=== PATIENT | male | born 1995 | race Caucasian/White ===

== ENCOUNTER 2016-08-07 01:08 | Emergency (ER) | payer OTHER ==
[~2016-08-07] VITALS: Ht 172.7 cm; Wt 85.6 kg
[~2016-08-07 01:08] MED LIST: ALPR-411 PO; CITA20TA9 PO
[2016-08-07 01:13] VITALS: BP 132/73; TEMP 37.4; Ht 172.7 cm; Wt 85.6 kg
[2016-08-07] MEDS ORDERED: LIDO/EPINEPHRINE/SOD BICARB 20 ML VIAL INFIL ONE (01:19)
[2016-08-07] MEDS ORDERED: XYLOCAINE 1%/SOD BICARB 20 ML VIAL INFIL ONE (01:19)
--- NOTE | 2016-08-07 03:08 | EMERGENCY ROOM VISIT NOTE ---
ED Visit Note First contact with patient: 01:18 CHIEF COMPLAINT: Left knee laceration HISTORY OF PRESENT ILLNESS: This 21-year-old patient presents to the emergency department left knee when he fell on it just prior to arrival . The bleeding has not stopped. Denies weakness or numbness of the extremity. patient has full range of motion of the extremity The patient rates the pain as mild and 3/10. The patient denies any other injuries. The patient's tetanus shot is up to date. Patient denies numbness, tingling, hip pain, ankle pain, corona pain, fever or pain. REVIEW OF SYSTEMS: A 6 system review of systems was completed with positives and pertinent negatives listed in the HPI. ALLERGIES: Gabapentin MEDICATIONS: Reviewed PMH: Depression, Dharmesh cordero SOCIAL HISTORY: No drug use PHYSICAL EXAM: Vital Signs: Reviewed Nurse's notes, vital signs stable. GENERAL : Pleasant male, in no acute distress, well developed, well nourished. SKIN: There is a 3 cm long laceration on the left leg just below the knee not involving the joint. The edges gape apart with traction. There is no foreign material in the wound and it looks clean. There is bleeding. No deep structures such as tendons, bones, or significant blood vessels are seen in the base of the wound. Extension and flexion of the extremity is full and strong. Patient is mildly tender over the left knee and x-ray imaging was ordered. No left hip, femur, corona pain. Full range of motion of the extremity. Capillary refill less than 2 seconds. Normal sensation to light and sharp touch. EMERGENCY DEPARTMENT COURSE: I examined the patient. Using sterile technique the wound was cleansed with Betadine. 3 ml of 1% buffered lidocaine was used to anesthetize the patient. The area was sterilely draped. Once the patient was anesthetized, the wound was copiously irrigated under pressure with sterile saline. The wound was explored and there were no deep structures injured. The laceration was repaired using 5 simple interrupted 4-0 nylon sutures. The patient tolerated the procedure well. Hemostasis was achieved. The area was cleaned with sterile saline and dressed with bacitracin ointment and bandage. X -rays of the knee were ordered and reviewed by myself with Dharmesh cordero versus nondisplaced fracture and patient was placed in the immobilizer and neurovascular status was checked after placement and is intact. pt was instructed on the use of crutches. Neurovascular status was rechecked after placement and is intact. The patient was discharged home in good condition. Differential diagnosis includes laceration, tendon injury, vascular injury , fracture, sprain, strain, dislocation, and other etiologies were considered. DIAGNOSIS: #1 left knee injury #2 left lower leg laceration DISCHARGE INSTRUCTIONS & TREATMENT: Keep wound clean and dry. Do not allow any crusting or dried blood to accumulate on sutures. If this occurs, use a 1:1 solution of hydrogen peroxide/water on a Q-tip to clean the wound. Use an antibiotic ointment for 3-4 days, then let wound dry. Suture removal in 10-12 days. Return sooner for any signs of infection (increasing redness, swelling, drainage). Ice and elevate for swelling and pain. Keep covered when in sun until sutures removed then SPF 50 or higher for one year. Vitamin E oil if desired two weeks after suture removal for reduction of scar. Ibuprofen(Motrin, Advil) may be used for fever or pain. Use 600mg every six hours as needed. Take with food. Avoid using more than 2400mg in a 24 hour period. Do not use 2400mg per day for more than three consecutive days without physician direction. Prolonged inappropriate use can lead to stomach upset or ulcers. This medication can be taken if you need to drive, work, or perform activities which may be dangerous when taking narcotic pain medication. (AND/OR) Acetaminophen(Tylenol) may be used for fever or pain. Use 1000mg every six hours as needed. Avoid using more than 3000mg in a 24 hour period. This medication can be taken if you need to drive, work, or perform activities which may be dangerous when taking narcotic pain medication. Ice compresses for 20 minutes at a time four times daily for 2-3 days. Use the crutches as instructed. Rest and elevate your injury. Wear knee immobilizer when up and about. Do not have it so tight that you cannot feel your foot. Continue current medications. Return to the ER immediately for any numbness, tingling, severe pain, extreme swelling in the extremity or as needed. Call Orthopedics on Monday to arrange follow up for your injury. Problem List Medical Problems: (1) Depression Status: Chronic Current/Historical Medications Scheduled Citalopram Hydrobromide (Celexa), 20 MG PO HS Allergies Coded Allergies: Gabapentin (Verified Allergy, Mild, RASH, 08/07/16) Vital Signs Date Time Temp Pulse Resp B/P Pulse Ox O2 Delivery O2 Flow Rate FiO2 08/07/16 01:41 105 08/07/16 01:13 37.4 115 18 132/73 99 Room Air Departure Information Referrals Tio Abernathy M.D. (PCP) Patient Instructions Formerly [facility], 1928–1983
[2016-08-07 03:39] VITALS: PULSE 102; O2SAT 98
--- NOTE | 2016-08-07 07:57 | DIAGNOSTIC IMAGING REPORT ---
LEFT KNEE 3 VIEWS CLINICAL HISTORY: Fall with left knee pain. FINDINGS: AP, crosstable lateral, and sunrise views of the left knee are obtained. No prior studies are available for comparison at the time of dictation. The skeletal structures are well mineralized. No fracture is seen. The joint spaces of the knee are well-maintained. Mild bony overgrowth is noted from the anterior tibial tuberosity. There is no joint effusion. Pretibial soft tissue injury is identified. No radiodense foreign body is seen. IMPRESSION: 1. No fracture is identified. 2. Pretibial soft tissue injury. Electronically signed by: Navid Joyce M.D. 08/07/2016 7:56 AM Dictated Date/Time: 08/07/2016 7:55 AM
== END 2016-08-07 03:39 | disposition home or self-care (01) ==
LOC: C.EDB 01:09 → C.EDA 03:39
DX: S81.012A Laceration without foreign body, left knee, initial encounter (principal); F32.9 Major depressive disorder, single episode, unspecified; Z79.899 Other long term (current) drug therapy; W19.XXXA Unspecified fall, initial encounter